=== PATIENT | male | born 1940 | race Caucasian/White ===

== ENCOUNTER 2024-12-10 07:04 | Day surgery (SDC) | payer MEDICARE, OTHER, SELFPAY ==
[2024-12-10 07:44] VITALS: BMI 29.6
[2024-12-10] MEDS: ELIQUIS 5 MG PO (08:26)
== END 2024-12-10 09:33 | disposition home or self-care (01) ==
LOC: CATH 07:04
PROVIDERS: ATTENDING PHYSICIAN Internal Medicine Cardiovascular Disease; FAMILY PHYSICIAN Internal Medicine
DX: I48.19 Other persistent atrial fibrillation (principal); I10 Essential (primary) hypertension; Z95.810 Presence of automatic (implantable) cardiac defibrillator; E11.65 Type 2 diabetes mellitus with hyperglycemia; Z79.4 Long term (current) use of insulin; Z86.74 Personal history of sudden cardiac arrest; Z79.899 Other long term (current) drug therapy; Z79.01 Long term (current) use of anticoagulants; I48.92 Unspecified atrial flutter
CPT/HCPCS: 92960; 93005